=== PATIENT | male | born 1945 | race Caucasian/White ===

== ENCOUNTER 2018-02-12 08:44 | Emergency (ER) | payer OTHER ==
[~2018-02-12] VITALS: Ht 175.3 cm; Wt 85.2 kg
[~2018-02-12 08:44] MED LIST: BISOPROLOL-HCT1 EAC1 PO; HYDROCHLOROTH12.5 M3 PO; LEVAQUIN750 MG PO; LUMIGAN 0.50 DROP/22 RIGHT EYE; MOTRIN600 MG PO; OMEPRAZOLE20 MG PO; POTASSIUM-9999 MG PO; PRAVASTATIN SOD40 MG PO; TAMSULOSIN HCL0.4 MG PO; TRAMADOL HCL50 MG PO
[2018-02-12 10:55] VITALS: BP 184/83
== END 2018-02-12 10:56 | disposition home or self-care (01) ==
LOC: EME 08:44
DX: R10.32 Left lower quadrant pain (principal); I10 Essential (primary) hypertension; K21.9 Gastro-esophageal reflux disease without esophagitis; Z87.19 Personal history of other diseases of the digestive system; Z98.890 Other specified postprocedural states; Z97.0 Presence of artificial eye; Z89.022 Acquired absence of left finger(s); Z90.89 Acquired absence of other organs
CPT/HCPCS: 99281; 99283; J1885